=== PATIENT | male | born 1940 | race Caucasian/White ===

== ENCOUNTER 2016-09-07 12:26 | Emergency (ER) | payer OTHER ==
--- NOTE | 2016-09-07 12:41 | EDPHY ---
H & P Time Seen by Provider: 09/07/16 12:29 HPI/ROS: CHIEF COMPLAINT: Right leg pain HISTORY OF PRESENT ILLNESS: Patient presents with pain in his right lateral leg for the last 2-3 days. He recently went on a trip with his granddaughter to [place] and [place]. Pain is intermittent, comes and goes. Is not really very symptomatic right now. Does not radiate. Not better worse with movement or palpation. Not associated with chest pain or shortness of breath. It is moderate at maximum, minimal currently. REVIEW OF SYSTEMS: Eye: no change in vision ENT: Patient had a bad head cold lots of congestion yesterday but it is much better today. Cardiac: no chest pain or syncope. He was a little bit lightheaded earlier today but not now. Pulmonary: no cough or SOB Abdomen: no vomiting, diarrhea, abdominal pain Musculoskeletal: no back pain Skin: no rash Neuro: no headache Constitutional: no fever : no urinary symptoms A comprehensive 10 point review of systems is otherwise negative aside from elements mentioned in the history of present illness. PAST MEDICAL HISTORY: Hernia surgery, appendectomy, attempted vascular bypass for impotence, vein stripping in his legs. Social history: Nonsmoker, recent travel as noted in the HPI. General Appearance: Alert and conversant, cooperative. Eyes: No scleral icterus. ENT, Mouth: Normal mucous membranes. Respiratory: Normal respiratory effort, breath sounds equal, lungs are clear to auscultation. Cardiovascular: Regular rate and rhythm. No murmur. Normal dorsalis pedis pulse and posterior tibial pulse on the right foot. Warm and normally perfused Gastrointestinal: Abdomen is soft and non tender. Neurological: Alert and oriented x3. Normally conversant. Face symmetric, normal movement and sensation in all extremities. Skin: Warm and dry, no rashes. Over the right lateral leg there is no redness or warmth, no blisters or eschar, no fluctuance. Musculoskeletal: No peripheral edema and no joint swelling. He does not have tenderness in the right lower leg. Compartments are soft. No bony tenderness in knee tib-fib or ankle on the right foot. Psychiatric: Not agitated. Emergency Department course/MDM: I think it is unlikely that he has arterial occlusion, compartment syndrome, fracture, cellulitis or any type of acute infection. Plan for ultrasound to evaluate for Cedillo cyst or DVT. 1309: Ultrasound reviewed, negative for DVT or Cedillo's cyst. More likely to be muscle strain or other soft tissue. Symptomatic treatment and outpatient follow-up. Smoking Status: Former smoker Constitutional: Initial Vital Signs Temperature (C) 37.2 C 09/07/16 12:35 Heart Rate 75 09/07/16 12:35 Respiratory Rate 18 09/07/16 12:35 Blood Pressure 112/70 09/07/16 12:35 O2 Sat (%) 96 09/07/16 12:35 O2 Delivery Mode Room Air Allergies/Adverse Reactions: No Known Allergies Allergy (Unverified 03/19/11 12:24) Home Medications: Medication Instructions Recorded Atorvastatin Calcium [Lipitor 20 20 mg PO DAILY 03/19/11 mg] Fluticasone Nasal [Flonase nasal 2 sprays NASAL DAILY #1 mdi 03/19/11 spray] Omeprazole/Sodium Bicarbonate 1 each PO 03/19/11 [Zegerid Otc 20-1,100 Mg Cap] Medical Decision Making - Diagnostics Imaging Results: Normal right leg ultrasound per Dr. Smith at 1:09 p.m. Departure - Departure Disposition: Home, Routine, Self-Care Clinical Impression: Leg pain, right Condition: Good Instructions: Muscle Strain (ED), Leg Pain (ED) Referrals: Serjio Gonzalez MD [Primary Care Provider] - As per Instructions
[2016-09-07 13:22] VITALS: BP 114/67; PULSE 68; RESP 16; TEMP 97.9; O2SAT 94
== END 2016-09-07 13:24 | disposition home or self-care (01) ==
LOC: CED 12:26
DX: M79.604 Pain in right leg (principal); Z87.891 Personal history of nicotine dependence
CPT/HCPCS: 93971-PO

== ENCOUNTER → 2017-03-05 | Outpatient (CLI) | payer OTHER | LOC: FIMAGING 07:22 | PROVIDERS: ATTEND Internal Medicine | PROC: CP1Z1ZZ Planar Nuclear Medicine Imaging of Musculoskeletal System, All using Technetium 99m (Tc-99m) (ICD-10-PCS; principal; 2017-03-05) | DX: R93.0 Abnormal findings on diagnostic imaging of skull and head, not elsewhere classified (principal) | CPT/HCPCS: 78306; A9503 ==

== ENCOUNTER → 2018-03-28 | Outpatient (CLI) | payer OTHER | LOC: CIMAGING 08:19 | PROVIDERS: ATTEND Internal Medicine | DX: M54.6 Pain in thoracic spine (principal); R91.1 Solitary pulmonary nodule | CPT/HCPCS: 71046-PO ==

== ENCOUNTER → 2018-04-02 | Outpatient (CLI) | payer OTHER ==
[~2018-04-02] MED LIST: IOPAMIDOL (ISOVUE 370) 100 ML BTL IV ONE
== END ==
LOC: FIMAGING 07:48
PROVIDERS: ATTEND Internal Medicine
DX: R91.1 Solitary pulmonary nodule (principal); R59.9 Enlarged lymph nodes, unspecified; R93.7 Abnormal findings on diagnostic imaging of other parts of musculoskeletal system
CPT/HCPCS: 71260; Q9967

== ENCOUNTER → 2018-04-04 | Outpatient (CLI) | payer OTHER ==
[~2018-04-04] MED LIST changes: -IOPAMIDOL (ISOVUE 370) 100 ML BTL IV ONE; +IOPAMIDOL (ISOVUE-370) 150 ML BTL IV ONE
== END ==
LOC: CIMAGING 12:54
PROVIDERS: ATTEND Internal Medicine
DX: K76.89 Other specified diseases of liver (principal); R91.8 Other nonspecific abnormal finding of lung field; I71.4 Abdominal aortic aneurysm, without rupture; J43.2 Centrilobular emphysema; C79.51 Secondary malignant neoplasm of bone
CPT/HCPCS: 74177; Q9967

== ENCOUNTER → 2018-04-05 | Outpatient (CLI) | payer OTHER ==
[~2018-04-05] MED LIST changes: +GADOBUTROL 10 ML VIAL IVP ONE; -IOPAMIDOL (ISOVUE-370) 150 ML BTL IV ONE
== END ==
LOC: FIMAGING 14:25
PROVIDERS: ATTEND Internal Medicine
DX: C79.51 Secondary malignant neoplasm of bone (principal); M48.04 Spinal stenosis, thoracic region
CPT/HCPCS: 72157; A9585

== ENCOUNTER 2018-04-09 10:50 | Outpatient (CLI) | payer OTHER ==
[~2018-04-09 10:50] MED LIST changes: +ALTEPLASE 2 MG VIAL IVP PRN; +FLUMAZENIL 0.5 MG/5 ML MDV IVP PRN; -GADOBUTROL 10 ML VIAL IVP ONE; +GLUCAGON HCL 1 MG VIAL IVP PRN; +HEPARIN 10,000 UNIT/10 ML MDV (1,000 UNIT/ML) IVP PRN; +MEPERIDINE 25 MG/ML SYR IVP PRN; +MIDAZOLAM 2 MG/2 ML VIAL IVP PRN; +NALOXONE HCL 0.4 MG/ML INJ IVP PRN; +NS 1,000 ML IV SCH; +PROTAMINE SULFATE 50 MG/5 ML VIAL IVP PRN; +fentaNYL 100 MCG/2 ML INJ IVP PRN
[2018-04-09] MEDS ORDERED: LIDOCAINE 1% 300 MG/30 ML SDV ONE (12:00)
[2018-04-09] MEDS ORDERED: fentaNYL 100 MCG/2 ML INJ ONE (12:24)
[2018-04-09] MEDS ORDERED: MIDAZOLAM 2 MG/2 ML VIAL ONE (12:24)
[2018-04-09 12:33] LABS: INR 1.09 (0.83-1.16); PROTIME(PATIENT) 14.3 SEC (12.0-15.0)
[2018-04-09] MEDS ORDERED: oxyCODONE IR 5 MG TAB PO PRN (13:02)
[2018-04-09] MEDS ORDERED: ONDANSETRON 4 MG/2 ML VIAL IVP PRN (13:02)
--- NOTE | 2018-04-09 13:03 | PDPROPOC ---
Sedation Plan of Care Sedation Plan of Care: vital signs stable, mental status noted, patient educated of risks, benefits, alternatives, patient can tolerate sedation ASA Classification: ASA 2 Planned drugs: fentanyl, midazolam Mallampati Score: Class 2 Mallampati Reference Image: Patient passed 3-3-2 rule?: Yes
--- NOTE | 2018-04-09 13:04 | PDRADPRE ---
Radiology History & Physical Indication for procedure: cancer (Liver mass biopsy) Home medications: Atorvastatin Calcium [Lipitor 20 mg] 40 mg PO DAILY 03/19/11 [Last Taken Unknown ] Aspirin 81mg (*) 81 mg PO DAILY 04/08/18 [Last Taken Unknown] Calcium 1 tab PO DAILY 04/08/18 [Last Taken Unknown] Gabapentin 300 mg PO DAILY 04/08/18 [Last Taken Unknown] Glucosamine 04/08/18 [Last Taken Unknown] Multivitamin 1 tab PO DAILY 04/08/18 [Last Taken Unknown] Omeprazole 20 mg PO DAILY 04/08/18 [Last Taken Unknown] traMADol 50 mg PO QID PRN 04/08/18 [Last Taken Unknown] Allergies/Adverse Reactions: No Known Allergies Allergy (Verified 04/08/18 10:52) Mental status: A&Ox3 Heart exam: regular rate and rhythm Lungs exam: clear to auscultation Mallampati Score: Class 2
--- NOTE | 2018-04-09 13:05 | PDRADPN ---
Radiology Procedure Note Date of Procedure: 04/09/18 Radiologist: Al Jordan Anesthesia: IV Sedation Pre-op Diagnosis: Liver mass Post-op Diagnosis: Liver mass Indication: Cancer unknown origin Procedure: Liver mass biopsy US guidance Finding(s): 3 18 ga cores sent in formalin. Inf/Abcess present in the surg proc area at time of surgery?: No
[2018-04-09 16:44] VITALS: BP 149/77
== END 2018-04-09 16:32 | disposition home or self-care (01) ==
LOC: FIMAGING 10:50
PROVIDERS: ATTEND Internal Medicine
PROC: 0FB03ZX Excision of Liver, Percutaneous Approach, Diagnostic (ICD-10-PCS; principal; 2018-04-09 13:24)
DX: C22.9 Malignant neoplasm of liver, not specified as primary or secondary (principal)
CPT/HCPCS: 47000; 76942; 88307; 88341; 88342; 99152; 99153; J2250; J3010

== ENCOUNTER → 2018-04-18 | Outpatient (CLI) | payer OTHER ==
[~2018-04-18] MED LIST changes: -ALTEPLASE 2 MG VIAL IVP PRN; -FLUMAZENIL 0.5 MG/5 ML MDV IVP PRN; +GADOBUTROL 10 ML VIAL IVP ONE; -GLUCAGON HCL 1 MG VIAL IVP PRN; -HEPARIN 10,000 UNIT/10 ML MDV (1,000 UNIT/ML) IVP PRN; -MEPERIDINE 25 MG/ML SYR IVP PRN; -MIDAZOLAM 2 MG/2 ML VIAL IVP PRN; -NALOXONE HCL 0.4 MG/ML INJ IVP PRN; -NS 1,000 ML IV SCH; -PROTAMINE SULFATE 50 MG/5 ML VIAL IVP PRN; -fentaNYL 100 MCG/2 ML INJ IVP PRN
== END ==
LOC: FIMAGING 12:16
PROVIDERS: ATTEND Internal Medicine Hematology & Oncology
DX: Z12.89 Encounter for screening for malignant neoplasm of other sites (principal); M89.9 Disorder of bone, unspecified; C34.90 Malignant neoplasm of unspecified part of unspecified bronchus or lung
CPT/HCPCS: 70553; A9585

== ENCOUNTER 2018-04-29 13:45 | Day surgery (SDC) | payer OTHER ==
--- NOTE | 2018-04-29 08:24 | PDHPUP ---
History & Physical Update H&P update statement: This history and physical update is based on an assessment of the patient which was completed after admission or registration (within 24 hours), but prior to the surgery/procedure. H&P update: H&P reviewed & patient examined, no change in patient's condition since H&P completed
[2018-04-29] MEDS ORDERED: ceFAZolin 2 GM/DEXTROSE 100 ML IV ONE (14:20)
[2018-04-29] MEDS ORDERED: BUPIVACAINE/EPI 0.5% 30 ML SDV ONE (14:32)
[2018-04-29] MEDS ORDERED: LR 1,000 ML IV ONE (14:45)
--- NOTE | 2018-04-29 14:54 | PDANEPAE ---
ANE History of Present Illness port placement for chemo ANE Past Medical History - Cardiovascular History Hx Hypertension: No Hx Arrhythmias: No Hx Chest Pain: No Hx Coronary Artery / Peripheral Vascular Disease: No Hx CHF / Valvular Disease: No Hx Palpitations: No - Pulmonary History Hx COPD: No Hx Asthma/Reactive Airway Disease: No Hx Recent Upper Respiratory Infection: No Hx Oxygen in Use at Home: No Hx Sleep Apnea: No - Neurologic History Hx Cerebrovascular Accident: No Hx Seizures: No Hx Dementia: No - Endocrine History Hx Diabetes: No Hypothyroid: No Hyperthyroid: No Obesity: no - Renal History Hx Renal Disorders: No - Liver History Hx Hepatic Disorders: Yes Hepatic History Comment: "Possible cancer detection from [address] scans and an MRI" - Neurological & Psychiatric Hx Hx Neurological and Psychiatric Disorders: Yes Neurological / Psychiatric History Comment: 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 - Cancer History Hx Cancer: No - Congenital Disorder History Hx Congenital Disorders: No - GI History Hx Gastrointestinal Disorders: Yes Gastrointestinal History Comment: Reflux - Other Health History Other Health History: Bilateral catatracts removal 2014 - Chronic Pain History Chronic Pain: No - Surgical History Prior Surgeries: Appendectomy 1959. Bilateral vein stripping 1965. Bilateral groin artery surgery for impotence correction 1987. R hernia 1989. herniated disc surgery x2 2005. Laser vein "surgery" 2008. R shoulder replacement 2013. R Ankle bone spur surgery 2016 ANE Review of Systems Review of systems is: negative Review of Systems: - Exercise capacity METS (RN): 4 METS ANE Patient History - Allergies Allergies/Adverse Reactions: No Known Allergies Allergy (Verified 04/08/18 10:52) - Home Medications Home medications: home medication list seen and reviewed Home Medications: Atorvastatin Calcium [Lipitor 20 mg] 40 mg PO DAILY 03/19/11 [Last Taken ] Aspirin 81mg (*) 81 mg PO DAILY 04/08/18 [Last Taken 04/27/18] Calcium 1 tab PO DAILY 04/08/18 [Last Taken 04/27/18] Gabapentin 300 mg PO DAILY 04/08/18 [Last Taken 04/28/18] Glucosamine 04/08/18 [Last Taken 04/27/18] Multivitamin 1 tab PO DAILY 04/08/18 [Last Taken 04/27/18] Omeprazole 20 mg PO DAILY 04/08/18 [Last Taken Unknown] traMADol 50 mg PO QID PRN 04/08/18 [Last Taken 1 Day Ago ~04/28/18] - NPO status NPO Since - Liquids (Date): 04/29/18 NPO Since - Liquids (Time): 04:00 NPO Since - Solids (Date): 04/29/18 NPO Since - Solids (Time): 04:00 - Anes Hx Anes Hx: no prior problems - Smoking Hx Smoking Status: Former smoker - Family Anes Hx Family Hx Anesthesia Complications: none ANE Labs/Vital Signs - Vital Signs Blood Pressure: 131/90 Heart Rate: 80 Respiratory Rate: 21 O2 Sat (%): 98 Height: 177.8 cm Weight: 83.007 kg ANE Physical Exam - Airway Neck exam: FROM Mallampati Score: Class 2 Mouth exam: normal dental/mouth exam - Pulmonary Pulmonary: no respiratory distress - Cardiovascular Cardiovascular: regular rate and rhythym - ASA Status ASA Status: II ANE Anesthesia Plan Anesthesia Plan: GA with mask
[2018-04-29] MEDS ORDERED: fentaNYL 100 MCG/2 ML INJ ONE (14:57)
[2018-04-29] MEDS ORDERED: PROPOFOL/EMULSION 500 MG/50 ML BOTTLE IV ONE (14:58)
[2018-04-29] MEDS ORDERED: LIDOCAINE 2% 5 ML SDV ONE (15:01)
[2018-04-29] MEDS ORDERED: LIDO/EPI 1% **Not for Epidural 20 ML MDV ONE (15:28)
[2018-04-29] MEDS ORDERED: LIDOCAINE 1% 300 MG/30 ML SDV ONE (15:29)
[2018-04-29] MEDS ORDERED: oxyCODONE IR 5 MG TAB PO PRN (15:42)
[2018-04-29] MEDS ORDERED: ACETAMINOPHEN 500 MG TAB PO PRN (15:42)
[2018-04-29] MEDS ORDERED: PROMETHAZINE HCL 25 MG/ML INJ IVP PRN (15:42)
[2018-04-29] MEDS ORDERED: ONDANSETRON 4 MG/2 ML VIAL IVP PRN (15:42)
[2018-04-29] MEDS ORDERED: fentaNYL 100 MCG/2 ML INJ IVP PRN (15:42)
[2018-04-29] MEDS ORDERED: ALBUTEROL 3 ML DEYVIAL IH PRN (15:42)
[2018-04-29] MEDS ORDERED: HYDROmorphONE/DILAUDID 2 MG/ML INJ IVP PRN (15:42)
[2018-04-29] MEDS ORDERED: NALOXONE HCL 0.4 MG/ML INJ IVP PRN (15:42)
--- NOTE | 2018-04-29 15:42 | POSTANESTH ---
Post Anesthetic Evaluation Cardiovascular Status: Normal, Stable Respiratory Status: Normal, Stable Level of Consciousness/Mental Status: Can Participate in Eval, Mildly Sleepy, Arousable Pain Control: Adequate, Prn Tx Ordered Nausea/Vomiting Control: Adequate, Prn Tx Ordered Complications Possibly Related to Anesthesia: None Noted
--- NOTE | 2018-04-29 16:11 | POSTOPPROG ---
Post Op Note Date of Operation: 04/29/18 Surgeon: Fran Syed Anesthesiologist: Karla Anesthesia: IV Sedation Pre-op Diagnosis: lung cancer Post-op Diagnosis: same Procedure: L IJ US guided port placement c fluoro Findings: flushed and withdrew appropriately Inf/Abcess present in the surg proc area at time of surgery?: No EBL: Minimal
--- NOTE | 2018-04-29 16:51 | GOP ---
[f rep st] OPERATIVE REPORT DATE OF OPERATION: 04/29/2018 SURGEON: Fran Syed MD [employer] OPERATOR: None. ANESTHESIA: IV sedation. ANESTHESIOLOGIST: Eddie Acosta MD. PREOPERATIVE DIAGNOSIS: Metastatic small cell lung cancer. POSTOPERATIVE DIAGNOSIS: Metastatic small cell lung cancer. PROCEDURE PERFORMED: Ultrasound-guided left internal jugular PowerPort placement with intraoperative fluoroscopy. FINDINGS: Successful placement of catheter tip at the atrial caval junction. Catheter both flushed and withdrew appropriately. It was heparin locked. SPECIMENS: None. ESTIMATED BLOOD LOSS: 5 cc. DESCRIPTION OF PROCEDURE: The patient was greeted in the preoperative suite. Once again, risks, benefits, and alternatives were discussed. Consent was signed. He was then brought back to the operative suite, placed on the OR table in a supine position. After all anesthesia machines, including SCDs were on and functioning, a World Health [employer] time-out was performed. After successful induction of general anesthesia, the patient's left neck was prepped and draped in the typical sterile fashion. I commenced the procedure by using the ultrasound, successfully identifying the left internal jugular vein. I successfully anesthetized the skin and muscle overlying this. Using a single stick, I successfully cannulated the vein and the guidewire threaded appropriately. Intraoperative fluoroscopic guidance showed that the wire was in the appropriate position. Over this, I then placed the peel-away dilator sheath. I then created a pocket approximately 2 fingerbreadths below the patient's left clavicle. The tunneler was then used to tunnel the port catheter from the port site to the stick site, and was placed through the peel- away sheath and sized appropriately at the atrial caval junction. It was attached to the port. It both withdrew and flushed appropriately. It was placed in the pocket. The pocket was then closed in layers, first with interrupted 3-0 Vicryl, followed by 4-0 Monocryl, followed by Dermabond. Local anesthesia was used throughout the case to provide a field block. The patient was then gently awoken in the operative suite and taken to the PACU in satisfactory condition. DRAINS: None. COUNTS: All counts were reported as correct x2. /[id number]/MODL MTDD
[2018-04-29 17:04] VITALS: BP 140/87
== END 2018-04-29 17:10 | disposition home or self-care (01) ==
LOC: FSGY 13:45
PROVIDERS: ATTEND Surgery
PROC: 0JH60XZ Insertion of Tunneled Vascular Access Device into Chest Subcutaneous Tissue and Fascia, Open Approach (ICD-10-PCS; principal; 2018-04-29 15:15)
PROC: B5181ZA Fluoroscopy of Superior Vena Cava using Low Osmolar Contrast, Guidance (ICD-10-PCS; principal; 2018-04-29 15:15)
PROC: 02HV33Z Insertion of Infusion Device into Superior Vena Cava, Percutaneous Approach (ICD-10-PCS; principal; 2018-04-29 15:15)
DX: C34.90 Malignant neoplasm of unspecified part of unspecified bronchus or lung (principal); Z96.611 Presence of right artificial shoulder joint; Z87.891 Personal history of nicotine dependence
CPT/HCPCS: C1788; J0690; J1642; J2704; J3010

== ENCOUNTER 2018-06-14 15:41 | Inpatient (IN) | payer OTHER ==
[2018-06-14] MEDS ORDERED: NS 2,600 ML IV ONE (16:03)
--- NOTE | 2018-06-14 16:03 | EDPHY ---
H & P Time Seen by Provider: 06/14/18 15:50 HPI/ROS: CHIEF COMPLAINT: Fever HISTORY OF PRESENT ILLNESS: History of lung cancer received 3 days of chemotherapy this week including etoposide and carboplatin and Aloxi: Head night sweats and Saturday and then today temperature at home which was high up to over 103 degrees F. Associated he had 5 loose bowel movements today, increasing urination, and a nonproductive cough for 24 hr. Symptoms moderate to severe. Not better or worse with anything. REVIEW OF SYSTEMS: Eye: no change in vision ENT: no sore throat Cardiac: no chest pain or syncope Pulmonary: HPI Abdomen: HPI no vomiting or abdominal pain Musculoskeletal: no back pain Skin: no rash Neuro: no headache Constitutional: HPI : HPI A comprehensive 10 point review of systems is otherwise negative aside from elements mentioned in the history of present illness. PAST MEDICAL HISTORY: Includes lung cancer, appendectomy, spinal surgery and right shoulder surgery, reflux Social history: Former smoker, [facility] patient General Appearance: Alert and conversant, cooperative. Eyes: No scleral icterus. ENT, Mouth: Slightly dry mucous membranes. Respiratory: Bilateral rhonchi but speaks in full sentences. Cardiovascular: Regular rate and rhythm. Gastrointestinal: Abdomen is soft and non tender. Neurological: Alert, face symmetric, normal motor and sensory in extremities. Skin: Warm and dry, no rashes. Musculoskeletal: No neck stiffness, no meningeal signs. Psychiatric: Not agitated. Emergency Department course/MDM: Saturation 84%, noted to be tachycardic and febrile. CBC chemistry and lactate , urinalysis and chest x-ray, influenza. IV fluid bolus. 1700: Discussed with Dr. Greene. Admission for community-acquired pulmonary infection. Ceftriaxone and azithromycin. Does not have severe sepsis or septic shock. 174: Influenza A noted to be positive, Tamiflu ordered. Smoking Status: Former smoker Constitutional: Initial Vital Signs Temperature (C) 38 C 06/14/18 15:42 Heart Rate 104 H 06/14/18 15:42 Respiratory Rate 20 06/14/18 15:42 Blood Pressure 175/92 H 06/14/18 15:42 O2 Sat (%) 84 L 06/14/18 15:42 O2 Delivery Mode Nasal Cannula O2 (L/minute) 2 Allergies/Adverse Reactions: latex Allergy (Verified 06/14/18 15:46) Home Medications: Medication Instructions Recorded Atorvastatin Calcium [Lipitor 20 40 mg PO DAILY 03/19/11 mg (*)] Aspirin 81mg (*) 81 mg PO DAILY 04/08/18 Calcium 1 tab PO DAILY 04/08/18 Gabapentin 300 mg PO DAILY 04/08/18 Glucosamine 04/08/18 Multivitamin 1 tab PO DAILY 04/08/18 Omeprazole 20 mg PO DAILY 04/08/18 traMADol 50 mg PO QID PRN 04/08/18 Lidocaine/Prilocaine [Emla Cream] 1 neil TP PRN PRN #5 g 04/29/18 oxyCODONE IR [Oxycodone Ir (*)] 5 - 10 mg PO Q4HRS PRN #10 tab 04/29/18 Aloxi 0.25mg/5ml (*) 06/14/18 Atezolizumab 06/14/18 Carboplatin 06/14/18 Decadron 06/14/18 Etoposide 06/14/18 Medical Decision Making - Diagnostics Imaging Results: Imaging Impressions Chest X-Ray 06/14/18 16:00 Impression: 1. Prominent interstitial markings at the lung bases could represent dependent atelectasis or edema without consolidation. 2. Pulmonary nodule previously identified right upper lobe anteromedially is obscured by mediastinal structures. Bilateral lower lung infiltrates. Imaging: I viewed and interpreted images myself Differential Diagnosis: Differential for fever considered including but not limited to meningitis, pneumonia, UTI, sepsis, endocarditis. Consult/Admit Bed Type: [place] [id number] Critical Care Time: Critical care time spent by me, Dr. Malik, exclusively with the care of this patient was 30 minutes, exclusive of PA or OPERATIONS ENGINEER time and exclusive of separate procedures. The organ system at risk was pulmonary and I ordered multiple diagnostics, supplemental oxygen, IV antibiotics and IV fluids to stabilize the patient and prevent worsening of the patient's condition. - Data Points Laboratory Results: Laboratory Results 06/14/18 16:10 06/14/18 16:10 06/14/18 06/14/18 06/14/18 16:35 16:10 16:10 WBC RBC Hgb Hct MCV MCH MCHC RDW Plt Count MPV Neut % (Auto) Lymph % (Auto) Dixon % (Auto) Eos % (Auto) Baso % (Auto) Nucleat RBC Rel Count Absolute Neuts (auto) Absolute Lymphs (auto) Absolute Monos (auto) Absolute Eos (auto) Absolute Basos (auto) Absolute Nucleated RBC Immature Gran % Immature Gran # RBC/WBC/PLT Morphology Platelet Estimate PT INR APTT VBG Lactic Acid Sodium 137 mEq/L mEq/L (135-145) Potassium 4.4 mEq/L mEq/L (3.5-5.2) Chloride 104 mEq/L mEq/L (97-110) Carbon Dioxide 23 mEq/l mEq/l (22-31) Anion Gap 10 mEq/L mEq/L (6-14) BUN 29 mg/dL H mg/dL (7-23) Creatinine 1.0 mg/dL mg/dL (0.7-1.3) Estimated GFR > 60 Glucose 89 mg/dL mg/dL (70-100) Calcium 8.8 mg/dL mg/dL (8.5-10.4) Total Bilirubin 0.8 mg/dL mg/dL (0.1-1.4) Urine Color YELLOW Urine Appearance CLEAR Urine pH 5.0 (5.0-7.5) Ur Specific [place] 1.015 (1.002-1.030) Urine Protein NEGATIVE (NEGATIVE) Urine Ketones NEGATIVE (NEGATIVE) Urine Blood NEGATIVE (NEGATIVE) Urine Nitrate NEGATIVE (NEGATIVE) Urine Bilirubin NEGATIVE (NEGATIVE) Urine Urobilinogen NEGATIVE EU EU (0.2-1.0) Ur Leukocyte Esterase NEGATIVE (NEGATIVE) Urine Glucose NEGATIVE (NEGATIVE) Nasal Influenza A PCR FLU A DETECTED H (NEGATIVE) Nasal Influenza B PCR NEGATIVE FOR FLU B (NEGATIVE) 06/14/18 06/14/18 06/14/18 16:10 16:10 16:10 WBC 7.32 10^3/uL 10^3/uL (3.80-9.50) RBC 3.74 10^6/uL L 10^6/uL (4.40-6.38) Hgb 11.7 g/dL L g/dL (13.7-17.5) Hct 35.6 % L % (40.0-51.0) MCV 95.2 fL fL (81.5-99.8) MCH 31.3 pg pg (27.9-34.1) MCHC 32.9 g/dL g/dL (32.4-36.7) RDW 17.4 % H % (11.5-15.2) Plt Count 282 10^3/uL 10^3/uL (150-400) MPV 9.2 fL fL (8.7-11.7) Neut % (Auto) 95.1 % H % (39.3-74.2) Lymph % (Auto) 3.0 % L % (15.0-45.0) Dixon % (Auto) 1.1 % L % (4.5-13.0) Eos % (Auto) 0.1 % L % (0.6-7.6) Baso % (Auto) 0.3 % % (0.3-1.7) Nucleat RBC Rel Count 0.0 % % (0.0-0.2) Absolute Neuts (auto) 6.96 10^3/uL H 10^3/uL (1.70-6.50) Absolute Lymphs (auto) 0.22 10^3/uL L 10^3/uL (1.00-3.00) Absolute Monos (auto) 0.08 10^3/uL L 10^3/uL (0.30-0.80) Absolute Eos (auto) 0.01 10^3/uL L 10^3/uL (0.03-0.40) Absolute Basos (auto) 0.02 10^3/uL 10^3/uL (0.02-0.10) Absolute Nucleated RBC 0.00 10^3/uL 10^3/uL (0-0.01) Immature Gran % 0.4 % % (0.0-1.1) Immature Gran # 0.03 10^3/uL 10^3/uL (0.00-0.10) RBC/WBC/PLT Morphology TNP Platelet Estimate TNP PT 13.3 SEC SEC (12.0-15.0) INR 1.05 (0.83-1.16) APTT 21.7 SEC L SEC (23.0-38.0) VBG Lactic Acid 1.3 mmol/L mmol/L (0.7-2.1) Sodium Potassium Chloride Carbon Dioxide Anion Gap BUN Creatinine Estimated GFR Glucose Calcium Total Bilirubin Urine Color Urine Appearance Urine pH Ur Specific [place] Urine Protein Urine Ketones Urine Blood Urine Nitrate Urine Bilirubin Urine Urobilinogen Ur Leukocyte Esterase Urine Glucose Nasal Influenza A PCR Nasal Influenza B PCR Medications Given: Discontinued Medications Sodium Chloride (Ns) 2,600 mls @ 5,200 mls/hr 30 ml/kg infuse over 30 min ( 2600 ml) IV EDNOW ONE PRN Reason: Protocol Stop: 06/14/18 16:32 Last Admin: 06/14/18 16:39 Dose: 2,600 mls Ceftriaxone Sodium/Dextrose (Rocephin 1 Gm (Premix)) 50 mls @ 100 mls/hr IV EDNOW ONE PRN Reason: Protocol Stop: 06/14/18 17:29 Last Admin: 06/14/18 17:08 Dose: 50 mls Departure - Departure Disposition: [facility] Inpatient Acute Clinical Impression: Fever, Influenza A, Hypoxemia Condition: Fair
[2018-06-14 16:29] LABS: PLATELET COUNT 282 10^3/uL (150-400)
[2018-06-14 16:39] LABS: INR 1.05 (0.83-1.16); PROTIME(PATIENT) 13.3 SEC (12.0-15.0)
[2018-06-14] MEDS ORDERED: AZITHROMYCIN IV 500 MG in D5W 250 ML IV ONE (17:00)
[2018-06-14] MEDS ORDERED: OSELTAMIVIR PHOSPHATE 75 MG CAP PO ONE (17:41)
[2018-06-14] MEDS ORDERED: ACETAMINOPHEN 325 MG TAB PO PRN (18:10)
[2018-06-14] MEDS ORDERED: ONDANSETRON 4 MG/2 ML VIAL IVP PRN (18:10)
--- NOTE | 2018-06-14 18:28 | PDGENHP ---
History and Physical History and Physical: CC: Fever cough short of breath HISTORY: This patient comes in with 3 days of cough fever shortness of breath and mild achiness. He has been evaluated in the ER and is positive for influenza A. The patient does have a history of mild emphysema for which he does not use bronchodilators or steroid or oxygen. In terms of his current dyspnea he get short of breath during my examination just standing up to use a urinal. He has been very inactive at home the last few days. He is fairly nauseous but is not having abdominal pain or vomiting so far. There is no diarrhea. His other main symptom right now is a sense of urinary urgency and frequency passing small amount of urine but no dysuria or blood in the urine. Of note the patient is also receiving treatment for small cell lung cancer. His regimen includes Atezolizumab, etoposide and carboplatin which he started in mid April. ROS: A comprehensive 10 system review revealed no other significant findings PAST MEDICAL HISTORY: Lung cancer stage IV, small cell, liver and skeletal mets Pain of cancer metastatic disease Chronic back pain Prior history of alcohol abuse Hyperlipidemia Neuropathy, ? Alcohol or other cause Hearing loss with hearing aids FAMILY MEDICAL HISTORY: Bladder cancer Diabetes Heart disease Hypertension SOCIAL HISTORY: 50 pack-year smoking history Prior heavy alcohol use MEDICATIONS: The patients list has been reconciled by our clinical pharmacist in the EMR. I have reviewed the list and ordered appropriate medicines. PHYSICAL EXAMINATION: Vital Signs: Temp 39.4 degrees, mildly hypertensive, initial pulse 104 but spontaneously down to mid 80s in the ER, respiratory rate as high as 27 in the ER, using 4 L nasal cannula oxygen Drilling Assistant: Examination: General: alert, oriented, good mentation, looks uncomfortable and quite ill but in no distress Skin: warm, dry, good color, no rash HEENT: normal Neck: no mass or jvd Resps: Rapid and mildly labored, more labored with standing up from bed Lungs: Diminished but otherwise clear breath sounds Heart: regular, no murmur Abdomen: soft, nondistended, nontender, +BS, no mass Upper Extremities: normal Lower Extremities: no edema, warm No Bleeding or bruising Neurologic: normal speech/language, normal teacher of the hearing impaired, no focal weakness IV site: looks normal LABORATORY DATA: Total white blood cell count is normal with a minimally elevated neutrophil count at 6.7 RADIOLOGY STUDIES: I reviewed today's chest x-ray images from the ER as well as his most recent chest x-ray from April. At this point he has very poor inspiratory effort on the x-ray and some atelectasis at both bases. The radiologist mentions interstitial markings at bases that could be atelectasis or edema. I do not see anything that looks like an alveolar infiltrate and the radiologist does not mention anything that looks like alveolar infiltrate 12 LEAD EKG: ASSESSMENT: * Acute hypoxemic respiratory failure * Acute Influenza A * In the ER he was diagnosed with pneumonia and started on antibiotics. Based on his chest x-ray, his radiologist reading of his chest x-ray, his white count I am not convinced at this time that he has pneumonia. * Urinary urgency I think is probably caused by his influenza but will check his urine * Metastatic small cell lung cancer on therapy * Former smoker, suspect some COPD likely present * Cancer pain PLANS: * Inpatient admission will need more than 48 hr of hospital care for his acute respiratory illness * Tamiflu twice daily * Bronchodilators * Prednisone * Repeat chest x-ray in morning * Check procalcitonin now * Determine on whether antibiotics are warranted in addition to Tamiflu based on above, other factors as pertinent * For his urinary urgency will give some peridium and oxybutynin, and will check urinalysis * Follow his white blood cell count in case it starts to drop from his chemotherapy I have reviewed the patient's case in detail with Dr. Joseluis Malik I have reviewed the patient's past medical records as part of this assessment, including outpatient clinic records, previous chest x-ray images
[2018-06-14] MEDS ORDERED: PROMETHAZINE HCL 25 MG/ML INJ IVP PRN ×2 (19:09→19:32)
[2018-06-14] MEDS ORDERED: predniSONE 20 MG TAB PO ONE (19:35)
[2018-06-14] MEDS: PHENAZOPYRIDINE HCL 200 MG TAB PO SCH (19:57)
[2018-06-14] MEDS: GABAPENTIN 300 MG CAP PO SCH (20:00)
[2018-06-14] MEDS: ZOLPIDEM TARTRATE 5 MG TAB PO PRN (20:00)
[2018-06-14] MEDS: OXYBUTYNIN CHLORIDE 5 MG TAB PO SCH (20:08)
[2018-06-14] MEDS: MELATONIN 3 MG TAB PO SCH (20:10)
[2018-06-15] MEDS: IPRATROPIUM BROMIDE 0.5 MG/2.5 ML DEYVIAL IH SCH ×2 (02:33→06:42)
--- NOTE | 2018-06-15 06:54 | PDMN ---
Medical Necessity Medical necessity: Pt meets inpt criteria per MD order and M-160, Sepsis and Other Febrile Illness, without Focal Infection, A-3 days. 78 y/o w/hx metastatic small cell lung cancer currently receiving chemo treatment presented to ED w/cough, fever, and SOB, admitted w/AHRF secondary to influenza, possible pneumonia requiring 3.5 to 4 L O2, T max 102.3, procalcitonin elev at .26. Est LOS>2MN for above.
[2018-06-15] MEDS: ENOXAPARIN 40 MG/0.4 ML SYR SC SCH (08:05)
[2018-06-15] MEDS: OXYBUTYNIN CHLORIDE 5 MG TAB PO SCH ×3 (08:05→20:16)
[2018-06-15] MEDS: MULTIVITAMINS 1 EACH TAB PO SCH (08:05)
[2018-06-15] MEDS: OSELTAMIVIR PHOSPHATE 75 MG CAP PO SCH ×2 (08:06→16:51)
[2018-06-15] MEDS: predniSONE 20 MG TAB PO SCH (08:06)
[2018-06-15] MEDS: PHENAZOPYRIDINE HCL 200 MG TAB PO SCH ×4 (08:06→20:15)
[2018-06-15] MEDS: PANTOPRAZOLE SODIUM 40 MG TAB PO SCH (08:06)
--- NOTE | 2018-06-15 08:41 | ASMTCMCOM ---
CM Note CM Note Notes: Met with Pts & who volunteers here at [facility] and chart reviewed for discharge. Robbin is a 78yr old admitted with 3 days off fever, SOB, nausea and Influenza A, pneumonia and Lung Cancer stage 4. Pt is currently receiving Chemotherapy and has chronic back pain. He has resource with [facility]. Pt lives in [place] with his Isa and they have a son who is a Regional [employer], a daughter in law who is an RN and great support system. Likely return home independently with when medically cleared.CM available for needs. PLAN: Likely home independently w/ Date Signed: 06/15/2018 08:40 AM Electronically Signed By:Jessa Larios
[2018-06-15] MEDS ORDERED: AZITHROMYCIN 250 MG TAB PO SCH (09:00)
[2018-06-15] MEDS ORDERED: ASPIRIN EC 81 MG TAB PO SCH (09:00)
[2018-06-15] MEDS ORDERED: PHENAZOPYRIDINE HCL 200 MG TAB PO SCH (09:00)
[2018-06-15] MEDS: IPRATROPIUM/ALBUTEROL 3 ML DEYVIAL IH SCH ×3 (11:57→20:51)
--- NOTE | 2018-06-15 14:34 | HOSPPROG ---
Hospitalist Progress Note Assessment/Plan: ASSESSMENT: * Acute hypoxemic respiratory failure * Acute Influenza A * In the ER he was diagnosed with pneumonia and started on antibiotics. Based on his chest x-ray, his radiologist reading of his chest x-ray, his white count I am not convinced at this time that he has pneumonia. * Urinary urgency I think is probably caused by his influenza but will check his urine * Metastatic small cell lung cancer on therapy * Former smoker, suspect some COPD likely present * Cancer pain PLANS: * Inpatient admission will need more than 48 hr of hospital care for his acute respiratory illness * Tamiflu twice daily * Bronchodilators * Prednisone * Repeat chest x-ray this AM with improved inspiration and atelectasis, will d/ c abx for now * For his urinary urgency will give some peridium and oxybutynin, UA negative for infection * Follow his white blood cell count in case it starts to drop from his chemotherapy Subjective: Ptatient reports overall feeling much better this AM Objective: Vital Signs Temp Pulse Resp BP Pulse Ox 36.7 C 69 16 121/71 H 96 06/15/18 07:42 06/15/18 12:03 06/15/18 12:03 06/15/18 07:42 06/15/18 12:03 06/14/18 06/15/18 06/16/18 05:59 05:59 05:59 Intake Total 2850 Output Total 100 Balance 2750 PT 13.3 SEC (12.0-15.0) 06/14/18 16:10 INR 1.05 (0.83-1.16) 06/14/18 16:10 - Physical Exam Constitutional: chronically ill appearing Eyes: PERRL Ears, Nose, Mouth, Throat: moist mucous membranes Cardiovascular: regular rate and rhythym Respiratory: no respiratory distress Gastrointestinal: soft, non-tender abdomen Genitourinary: No alexander in urethra Skin: warm Musculoskeletal: generalized weakness Neurologic: AAOx3 Psychiatric: interacting appropriately ICD10 Worksheet Patient Problems: Problems Problem Status Onset Fever Acute Hypoxemia Acute Influenza A Acute
[2018-06-15] MEDS: ATORVASTATIN CALCIUM 40 MG TAB PO SCH (16:50)
[2018-06-15] MEDS: ZOLPIDEM TARTRATE 5 MG TAB PO PRN (20:16)
[2018-06-15] MEDS: GABAPENTIN 300 MG CAP PO SCH (20:16)
[2018-06-15] MEDS: MELATONIN 3 MG TAB PO SCH (20:16)
--- NOTE | 2018-06-15 21:27 | GCON ---
[f rep st] CONSULTATION INPATIENT ONCOLOGY CONSULTATION DATE OF CONSULTATION: 06/15/2018 REFERRING PHYSICIAN: Larry Driscoll DO OUTPATIENT ONCOLOGIST: Wang Oviedo MD REASON FOR CONSULTATION: Influenza A in a patient with extensive stage small-cell lung cancer. HISTORY OF PRESENT ILLNESS: The patient is a 78-year-old man with recently diagnosed extensive stage small-cell carcinoma of the lung. He presented with pain. Imaging revealed multiple subpleural nod ules, mediastinal adenopathy and some metastatic disease to the bone at T10 and T12. He started jay tment with carboplatin, etoposide, and atezolizumab immunotherapy. After 2 cycles, he had a good res ponse and was less symptomatic. He received his 3rd cycle starting on June 11. Around that time, he said he began to develop a little bit of a cough. He then developed a fever to 101.7 at home and came to the emergency department as instructed for further evaluation. A chest x-ray showed some at electasis, but did not show pneumonia. He was not neutropenic. A nasal swab was positive for influe nza A. The patient had received a previous vaccine. He was started on Tamiflu. He says he is feeli ng somewhat better this morning and denies shortness of breath. PAST MEDICAL HISTORY: 1. Extensive stage small-cell lung cancer as described above. 2. COPD. 3. Hyperlipidemia. 4. Hearing loss. CURRENT MEDICATIONS: Include DuoNeb, Lipitor, azithromycin, ceftriaxone, Lovenox, Neurontin, Tamiflu , Ditropan, Protonix, Pyridium, prednisone 20 mg daily. ALLERGIES: No known drug allergies. FAMILY HISTORY: Noncontributory. SOCIAL HISTORY: He has a 50 pack-year smoking history. Does not drink alcohol. Lives with his . REVIEW OF SYSTEMS: Aside from pertinent positives in HPI, a 14-point review of systems was negative. PHYSICAL EXAMINATION: VITAL SIGNS: His temperature is 36.7, blood pressure 120/71, heart rate 62, o xygen saturation 95% on 2 L. GENERAL: He was in no acute distress, breathing comfortably. HEENT: Sclerae are anicteric. Oropharynx is clear. NECK: Supple without adenopathy. LUNGS: Notable for scattered crackles bilaterally. CARDIAC: Regular rate and rhythm. No murmurs, gallops, or rubs. A BDOMEN: Normoactive bowel sounds. Nontender. Nondistended. EXTREMITIES: Without edema. NEUROLOG ICAL: He is alert and oriented x3. LABORATORY DATA: White count 7.32, hemoglobin 11.7, platelets of 282. Basic metabolic panel was nor mal. IMPRESSION: This is a 78-year-old man receiving chemotherapy and immunotherapy for advanced stage sm all-cell lung cancer. He appears to be having a good response. He is now admitted with a fever and a cough. This is all likely due to influenza A. While immunotherapy can cause pneumonitis, he is no t particularly hypoxemic or dyspneic and the chest x-ray findings are under-whelming for that diagnos is. RECOMMENDATIONS: 1. We will continue with treatment of influenza as you are. 2. The patient should be okay to receive his 4th cycle treatment as scheduled in about 2-1/2 weeks. If his pulmonary symptoms become worse, we can reconsider the possibility that this is related to hi s immune treatment. Thank you for this consultation. It was pleasure to meet the patient and we appreciate the opportuni ty to be involved in his care. We will continue to follow with you while he is in the hospital. /[id number]/MODL
[2018-06-16] MEDS: IPRATROPIUM/ALBUTEROL 3 ML DEYVIAL IH SCH ×4 (05:51→23:08)
[2018-06-16] MEDS: PANTOPRAZOLE SODIUM 40 MG TAB PO SCH (08:21)
[2018-06-16] MEDS: OSELTAMIVIR PHOSPHATE 75 MG CAP PO SCH ×2 (08:21→17:00)
[2018-06-16] MEDS: PHENAZOPYRIDINE HCL 200 MG TAB PO SCH ×3 (08:22→21:11)
[2018-06-16] MEDS: ENOXAPARIN 40 MG/0.4 ML SYR SC SCH (08:22)
[2018-06-16] MEDS: OXYBUTYNIN CHLORIDE 5 MG TAB PO SCH ×3 (08:22→21:12)
[2018-06-16] MEDS: MULTIVITAMINS 1 EACH TAB PO SCH (08:22)
[2018-06-16] MEDS: predniSONE 20 MG TAB PO SCH (08:22)
--- NOTE | 2018-06-16 09:36 | SOAPPROG ---
SOAP Progress Note Assessment/Plan: Assessment: 1. Influenza A, better since fever resolved 2.Small cell lung ca , extensive stage, on immunotherapy Plan:continue tamiflu, follow up Dr Oviedo post d/c. 06/16/18 09:32 Subjective: Feels better, still weak. has a fever this AM Objective: Vital Signs Temp Pulse Resp BP Pulse Ox 98.0 F 82 16 121/76 H 95 06/16/18 08:00 06/16/18 08:00 06/16/18 08:00 06/16/18 08:00 06/16/18 08:00 06/15/18 06/16/18 06/17/18 05:59 05:59 05:59 Intake Total 2850 1900 Output Total 100 700 Balance 2750 1200 PT 13.3 SEC (12.0-15.0) 06/14/18 16:10 INR 1.05 (0.83-1.16) 06/14/18 16:10 Physical Exam - Physical Exam General Appearance: alert, no apparent distress ICD10 Worksheet Patient Problems: Problems Problem Status Onset Fever Acute Hypoxemia Acute Influenza A Acute
--- NOTE | 2018-06-16 14:59 | HOSPPROG ---
Hospitalist Progress Note Assessment/Plan: The patient is a 78-year-old male with PMH metastatic small cell lung cancer who was admitted for acute resp failure/acute bronchitis secondary to influenza A. This patient is new to me. Reviewed patient's chart/records for this visit. ASSESSMENT/PLAN: Acute hypoxemia resp failure, improving Acute viral bronchitis, 2/[address] IV Small-cell lung cancer H/o tobacco use Urinary urgency, improved Anemia, mild -Tamiflu. -SVNs, O2. -PT/OT. -Plan for DC to home w/ home O2 tomorrow (if needed). May need C PT/OT if he does not get stronger by tomorrow. -Encouraged pt to ambulate. VTE prophylaxis: Lovenox Code Status: Full code Status: Inpatient for > 2 midnight stay. Disposition: [facility] with discharge anticipated tomorrow ____ SUBJECTIVE: Today the patient feels better. He wants to go home. He continues to have a cough which is nonproductive. His oxygen saturation dropped to the high 80s upon ambulation today. OBJECTIVE: Physical Exam: General: The patient is an overweight, elderly who is alert and in no acute distress. HEENT: normocephalic, extraocular movements intact, conjunctivae clear. Mucous membranes moist. Neck: trachea midline, no visible masses. CV: +S1/S2, RRR, no MRG. Resp: unlabored, CTAB with mild bibasilar wheezing. Abd: soft and nondistended. Musculoskeletal: Normal muscle tone/bulk. Neuro: cranial nerves II XII grossly intact. Intact gross motor and sensory function. Psych: Appropriate mood and appropriate affect. Skin: No pallor. No petechiae. Heme/lymph: No peripheral edema at bilateral lower extremities. Labs/Imaging/Other Tests: Personally reviewed/interpreted. Chest [id number], no acute infiltrates. Personally interpreted. Objective: Vital Signs Temp Pulse Resp BP Pulse Ox 36.8 C 105 H 18 123/75 H 92 06/16/18 11:52 06/16/18 11:52 06/16/18 11:52 06/16/18 11:52 06/16/18 11:52 06/15/18 06/16/18 06/17/18 05:59 05:59 05:59 Intake Total 2850 1900 Output Total 100 700 Balance 2750 1200 PT 13.3 SEC (12.0-15.0) 06/14/18 16:10 INR 1.05 (0.83-1.16) 06/14/18 16:10 - Time Spent With Patient Time Spent with Patient: greater than 35 minutes Time Spent with Patient: Greater than 35 minutes spent on this patients care, greater than 50% of time spent counseling, educating, and coordinating care regarding the above mentioned plan. ICD10 Worksheet Patient Problems: Problems Problem Status Onset Fever Acute Hypoxemia Acute Influenza A Acute
[2018-06-16] MEDS: ATORVASTATIN CALCIUM 40 MG TAB PO SCH (17:00)
[2018-06-16] MEDS: GABAPENTIN 300 MG CAP PO SCH (21:11)
[2018-06-16] MEDS: MELATONIN 3 MG TAB PO SCH (21:11)
[2018-06-16] MEDS: ZOLPIDEM TARTRATE 5 MG TAB PO PRN (21:13)
[2018-06-17] MEDS: IPRATROPIUM/ALBUTEROL 3 ML DEYVIAL IH SCH ×2 (06:00→11:09)
[2018-06-17] MEDS: OSELTAMIVIR PHOSPHATE 75 MG CAP PO SCH (08:15)
[2018-06-17] MEDS: PANTOPRAZOLE SODIUM 40 MG TAB PO SCH (08:15)
[2018-06-17] MEDS: PHENAZOPYRIDINE HCL 200 MG TAB PO SCH ×2 (08:15→13:36)
[2018-06-17] MEDS: MULTIVITAMINS 1 EACH TAB PO SCH (08:16)
[2018-06-17] MEDS: predniSONE 20 MG TAB PO SCH (08:16)
[2018-06-17] MEDS: OXYBUTYNIN CHLORIDE 5 MG TAB PO SCH (08:16)
[2018-06-17] MEDS: ENOXAPARIN 40 MG/0.4 ML SYR SC SCH (08:18)
[2018-06-17 11:19] VITALS: BP 135/78
--- NOTE | 2018-06-17 13:36 | PDHOMEO2F ---
Home Oxygen Face to Face Home Orders: I certify that a physician or a nurse practitioner or physician's triage assistant has had a [id number] encounter with this patient on the date of this order due to the diagnosis listed, which relates to the primary reason the patient requires home oxygen. Alternative treatments have been tried, or considered, and deemed ineffective. It is anticipated that supplemental oxygen will result in improvement with treatment. Home oxygen qualifying diagnosis: COPD SpO2 on room air (%): 85 Frequency of home oxygen needed: with activity Home oxygen liters per minute: 2 Home oxygen delivery device: nasal cannula Concentrator: Yes E-tanks for mobility and back up: Yes If ordering portable O2, is the patient mobile in the home?: Yes I certify that, based on these findings, the home oxygen is medically necessary for this patient for the following length of time. Length of time home oxygen needed: 1 month
--- NOTE | 2018-06-17 14:26 | PDDCSUM ---
Discharge Summary Discharge Summary: Date of Admission: June 14, 2018 Date of Discharge: June 17, 2018 Discharge Diagnoses: Acute hypoxemic respiratory failure, improved Acute viral bronchitis - Influenza A Stage IV small cell lung cancer Probable COPD History of tobacco use Urinary urgency, probable side effect chemotherapy Anemia, mild Admission Diagnoses: Acute hypoxemic respiratory failure Acute influenza a viral infection Possible pneumonia Metastatic small cell lung cancer Former smoker Suspected COPD/emphysema Cancer pain [facility] Course: Patient is a 78-year-old male with history of small cell lung cancer who presented with 3 days of cough, fever, shortness of breath and mild achiness. He was found to have influenza A infection and was started on Tamiflu, prednisone, nebulizer treatments, and supplemental oxygen. If in the next 3 days, he improved greatly. He was also complaining of urinary urgency and frequency which initially started with his chemotherapy a couple months prior. However within the last week, the urinary urgency was becoming very frequent, almost hourly, and was causing patient discomfort. Urinalysis showed no evidence of infection. Patient had been put on Pyridium during the hospitalization, but this did not help. The patient was recommended to seek advice about this issue from his oncologist. Patient was sent to home with home oxygen and Tamiflu to continue his recovery. He was able to perform activities of daily life independently at the time of discharge. Physical Exam: General: The patient is a male who is alert and in no acute distress. HEENT: normocephalic, extraocular movements intact, conjunctivae clear. Nares and oral mucosa pink and moist. Neck: trachea midline, no visible masses, no external lesions. Resp: unlabored breathing. Abd: soft and nondistended. Musculoskeletal: Normal muscle tone and bulk. Neuro: cranial nerves II - XII grossly intact. Intact gross motor and sensory function. Psych: appropriate mood/affect. Skin: no pallor. Condition: Stable. Discharged to: Home. Pertinent tests/labs/imaging: Respiratory panel-positive for influenza A. CXR: 1. Improved inspiration with decrease in compressive atelectatic changes at the lung bases. 2. Residual fibrotic streaks at the left lung base. Medications: Please see med rec form. Resume home medications. New medications -Tamiflu 75 mg p.o. twice daily #5. Proair HFA inh QID prn shortness of breath/ dyspnea. Special instructions: Use Oxygen - 2L with activity. PCP may determine how long oxygen is needed. Return to ED/hospital if symptoms recur or worsen. Follow up: PCP Wang Red in [address] Oviedo in 1 week. </> 30 minutes of total time was spent on counseling and coordination of care for this patient's discharge.
--- NOTE | 2018-06-17 14:51 | ASMTLACE ---
LACE Length of stay for Answers: 2 days current admission Acuity / Level of Answers: Yes Care: Did the patient have an inpatient admission? Comorbidities - select Answers: Any tumor (including all that apply lymphoma or leukemia) Opioid dependence / Chronic pain # of Emergency department Answers: 1-2 visits in the last 6 months Score: 12 Date Signed: 06/17/2018 02:50 PM Electronically Signed By:Kaylee Guzman RN
--- NOTE | 2018-06-17 14:54 | ASDISCHSUM ---
Discharge Information Plan Status:Home with No Needs Medically Cleared to Leave:06/17/2018 Discharge Date:06/17/2018 CM D/C Disposition:Home, Routine, Self-Care ADT D/C Disposition:Home, Routine, Self-Care Projected Discharge Date:06/17/2018 Transportation at D/C:Family Discharge Delay Reason: Follow-Up Date:06/17/2018 Discharge Slot: Final Diagnosis: Placement Information Patient Contact Information Contact Name:CYNTHIA Relationship: Address:[address] [place] [address] City:[place] Alternate Phone: [facility]/Zip Code:[place] [address] Email: Financial Information Financial Class:Medicare Advantage Plans Primary Plan Desc:[facility] ADVANTAGE PLANS Primary Plan Number:[id number] Secondary Plan Desc: Secondary Plan Number: Assessment Information [facility] CM Progress Note CM Note CM Note Notes: Met with Pts & who volunteers here at [facility] and chart reviewed for discharge. Robbin is a 78yr old admitted with 3 days off fever, SOB, nausea and Influenza A, pneumonia and Lung Cancer stage 4. Pt is currently receiving Chemotherapy and has chronic back pain. He has resource with [facility]. Pt lives in [place] with his Isa and they have a son who is a Making Line Worker, a daughter in law who is an RN and great support system. Likely return home independently with when medically cleared.CM available for needs. PLAN: Likely home independently w/ Date Signed: 06/15/2018 08:40 AM Electronically Signed By:Jessa Larios LACE SHWETHA Length of stay for Answers: 2 days current admission Acuity / Level of Answers: Yes Care: Did the patient have an inpatient admission? Comorbidities - select Answers: Any tumor (including all that apply lymphoma or leukemia) Opioid dependence / Chronic pain # of Emergency department Answers: 1-2 visits in the last 6 months Score: 12 Date Signed: 06/17/2018 02:50 PM Electronically Signed By:Kaylee Guzman RN Case Management Discharge Plan Note Case Management Discharge Discharge Order Complete? Answers: Yes Patient to Obtain Answers: via Family Medications Transportation Arranged Answers: Family/Friends Discharge Comments Notes: 06/17/2018 Case Management Note Discussed pt during rounds this morning. Heraclio from Palliative Care met w/pt. Please see note. Pt declined referral for outpatient palliative care. PT and OT cleared pt to return home independently. There are no case management d/c needs identified. Case Management d/c poc: independent with supportive family and follow up as directed. Date Signed: 06/17/2018 02:53 PM Electronically Signed By:Kaylee Guzman RN Intervention Information
== END 2018-06-17 14:50 | disposition home or self-care (01) | DRG 865 ==
LOC: F1N 17:45
PROVIDERS: ADMIT Internal Medicine; ATTEND Internal Medicine
DX: J10.89 Influenza due to other identified influenza virus with other manifestations (principal); J96.01 Acute respiratory failure with hypoxia; C34.90 Malignant neoplasm of unspecified part of unspecified bronchus or lung; C79.51 Secondary malignant neoplasm of bone; J20.8 Acute bronchitis due to other specified organisms; R33.0 Drug induced retention of urine; T45.1X5A Adverse effect of antineoplastic and immunosuppressive drugs, initial encounter; G89.3 Neoplasm related pain (acute) (chronic); E78.5 Hyperlipidemia, unspecified; D64.9 Anemia, unspecified; J44.9 Chronic obstructive pulmonary disease, unspecified; Z87.891 Personal history of nicotine dependence
CPT/HCPCS: 96365; 97165-GO; J0456; J0696; J1650; J2550; J7512

== ENCOUNTER 2018-07-21 16:55 | Inpatient (IN) | payer OTHER ==
[~2018-07-21 16:55] MED LIST changes: -GADOBUTROL 10 ML VIAL IVP ONE; +IOPAMIDOL (ISOVUE 370) 100 ML BTL IV ONE
[2018-07-21] MEDS ORDERED: APIXABAN 5 MG TAB PO ONE (17:18)
[2018-07-21] MEDS ORDERED: ONDANSETRON 4 MG/2 ML VIAL IVP PRN (18:10)
[2018-07-21] MEDS ORDERED: ACETAMINOPHEN 325 MG TAB PO PRN (18:10)
[2018-07-21] MEDS ORDERED: ONDANSETRON DISINTEGRATING 4 MG TAB PO PRN (18:10)
[2018-07-21] MEDS ORDERED: PROCHLORPERAZINE MALEATE 10 MG TAB PO PRN (18:12)
[2018-07-21] MEDS ORDERED: ALBUTEROL 60 PUFFS/8 GM MDI IH PRN (20:15)
[2018-07-21] MEDS: GABAPENTIN 300 MG CAP PO SCH (20:43)
[2018-07-21] MEDS ORDERED: ZOLPIDEM TARTRATE 5 MG TAB PO SCH (21:00)
[2018-07-21] MEDS: ZOLPIDEM TARTRATE 5 MG TAB PO SCH (21:31)
[2018-07-22] MEDS ORDERED: APIXABAN 5 MG TAB PO SCH (06:00)
[2018-07-22] MEDS: MULTIVITAMINS 1 EACH TAB PO SCH (08:11)
[2018-07-22] MEDS: PANTOPRAZOLE SODIUM 40 MG TAB PO SCH (08:11)
[2018-07-22] MEDS: guaiFENesin 600 MG TAB.ER PO SCH ×2 (15:41→20:55)
[2018-07-22] MEDS ORDERED: ATORVASTATIN CALCIUM 40 MG TAB PO SCH (18:00)
[2018-07-22] MEDS: ZOLPIDEM TARTRATE 5 MG TAB PO SCH (20:54)
[2018-07-22] MEDS: GABAPENTIN 300 MG CAP PO SCH (20:55)
[2018-07-22] MEDS: ENOXAPARIN 100 MG/ML SYR SC SCH (20:56)
[2018-07-23] MEDS: PANTOPRAZOLE SODIUM 40 MG TAB PO SCH (09:20)
[2018-07-23] MEDS: guaiFENesin 600 MG TAB.ER PO SCH (09:20)
[2018-07-23] MEDS: MULTIVITAMINS 1 EACH TAB PO SCH (09:20)
[2018-07-23] MEDS: ENOXAPARIN 100 MG/ML SYR SC SCH (09:20)
== END 2018-07-23 12:24 | disposition home or self-care (01) | DRG 175 ==
DX: I26.99 Other pulmonary embolism without acute cor pulmonale (principal); J96.00 Acute respiratory failure, unspecified whether with hypoxia or hypercapnia; C34.90 Malignant neoplasm of unspecified part of unspecified bronchus or lung; I82.412 Acute embolism and thrombosis of left femoral vein; I82.432 Acute embolism and thrombosis of left popliteal vein; C78.7 Secondary malignant neoplasm of liver and intrahepatic bile duct; C79.51 Secondary malignant neoplasm of bone; G89.29 Other chronic pain; J44.9 Chronic obstructive pulmonary disease, unspecified; Z87.891 Personal history of nicotine dependence

== ENCOUNTER 2018-08-28 17:01 | Day surgery (SDC) | payer OTHER | END 2018-08-28 19:10 | disposition home or self-care (01) | LOC: FSGY 17:01 ==